=== PATIENT | female | born 1955 | race African-American/Black ===

== ENCOUNTER 2024-08-18 15:47 | Emergency (ER) | payer MEDICARE, MEDICAID ==
[~2024-08-18] VITALS: Ht 152.4 cm; Wt 45.3 kg
[2024-08-18 15:54] VITALS: O2SAT 98
[2024-08-18 16:09] VITALS: TEMP 36.7; O2SAT 99
[2024-08-18 16:47] LABS: BASOPHILS % 1.1 % (0.0-2.0); EOSINOPHILS % 0.8 % (0.0-5.0); HEMATOCRIT. 45.1 % (36.0-48.0); HEMOGLOBIN. 15.5 g/dL (12.0-16.0); LYMPHOCYTES % 33.7 % (20.0-50.0); MEAN CORPUSCULAR HEMOGLOBIN 31.9 pg (28.0-32.0); MEAN CORPUSCULAR HGB CONC 34.3 g/dL (31.0-37.0); MEAN CORPUSCULAR VOLUME 93.1 fL (81.0-99.0); MEAN PLATELET VOLUME 9.4 fl (7.4-10.4); MONOCYTES % 8.5 % (2.0-8.0); NEUTROPHILS % 55.9 % (40.0-76.0); PLATELET 201 x1000/uL (130-400); RED BLOOD CELL COUNT 4.85 mill/uL (4.2-5.4); RED CELL DISTRIBUTION WIDTH 14.7 % (11.6-14.6); WHITE BLOOD COUNT 6.6 x1000/uL (4.5-11.0)
[2024-08-18 16:55] LABS: POTASSIUM 3.7 mEq/L (3.5-5.1)
[2024-08-18 16:56] LABS: CALCIUM 10.6 mg/dL (8.7-10.4)
[2024-08-18 17:01] LABS: CREATININE 1.2 mg/dL (0.6-1.0)
[2024-08-18 17:21] LABS: ALANINE AMINOTRANSFERASE 20 IU/L (10-49); ALBUMIN 5.1 g/dL (3.2-4.8); ASPARTATE AMINOTRANSFERASE 30 IU/L (<34); BILIRUBIN DIRECT 0.4 mg/dL (<=3.0); BILIRUBIN TOTAL 1.4 mg/dL (0.1-1.0); PROTEIN TOTAL 7.8 g/dL (6.0-8.3)
[2024-08-18 17:30] LABS: CLARITY URINE CLEAR (CLEAR); COLOR URINE DARK YELLOW (YELLOW); GLUCOSE URINE NEGATIVE (NEGATIVE); KETONES URINE TRACE (NEGATIVE); LEUKOCYTE ESTERASE URINE 2+ (NEGATIVE); NITRITE URINE NEGATIVE (NEGATIVE); OCCULT BLOOD URINE NEGATIVE (NEGATIVE); PROTEIN URINE 1+ (NEGATIVE); SPECIFIC GRAVITY URINE 1.016 (1.005-1.030)
[2024-08-18 18:06] LABS: RBC URINE 0-2 /hpf (0-2); SQUAMOUS EPITHELIAL CELL URINE 1+ /lpf (RARE/1+)
[2024-08-18 18:07] LABS: BACTERIA URINE 1+
[2024-08-18] MEDS ORDERED: MORPHINE SULFATE 2 MG/ML INJ (NOT FOR IM USE) IV ONE (18:15)
[2024-08-18 18:40] VITALS: BP 100/73; PULSE 86; RESP 16
[2024-08-18] MEDS: PANTOPRAZOLE SODIUM 40 MG/VIAL IV ONE (18:40)
[2024-08-18] MEDS: MORPHINE SULFATE 4 MG/ML INJ (FOR IV/IM USE) IV SCH (18:40)
[2024-08-18] MEDS: CEFTRIAXONE 1GM/50ML 50 ML IV SCH (18:41)
[2024-08-18] MEDS: SODIUM CHLORIDE 0.9% 1,000 ML IV ONE (18:41)
[2024-08-18] MEDS: ONDANSETRON HCL 4MG/2ML INJ IV ONE (18:41)
[2024-08-18 19:39] LABS: TROPONIN I HIGH SENSITIVITY 37 ng/L (3.0-34)
== END 2024-08-18 20:12 | disposition left against medical advice (07) ==
LOC: ER 15:47
DX: R10.9 Unspecified abdominal pain (principal); R11.2 Nausea with vomiting, unspecified; I10 Essential (primary) hypertension
CPT/HCPCS: 99285; 74176; 96365; 96375; 80076; 80048; 81003; 83690; 85025; 84484; 36415; 93005; J0696; J2405; J2470; J2270; J7030